=== PATIENT | male | born 1965 | race Caucasian/White ===

== ENCOUNTER 2018-06-16 07:59 | Emergency (ER) | payer SELFPAY ==
[~2018-06-16] VITALS: Ht 162.6 cm; Wt 63.5 kg
[~2018-06-16 07:59] MED LIST: ONDAN4ODT PO
[2018-06-16] MEDS ORDERED: TETANUS,DIPTH,PERTUSS P/F (BOOSTRIX) 0.5 ML VIAL IM ONE (08:15)
[2018-06-16] MEDS ORDERED: KETOROLAC 30 MG/ML VIAL IM ONE (08:15)
[2018-06-16] MEDS ORDERED: LIDOCAINE/EPI 2% 1:100,00 (XYLOCAINE) 20 ML VIAL INJ ONE (08:15)
--- NOTE | 2018-06-16 08:18 | ED Fall/Injury ---
General Chief Complaint: Laceration Stated Complaint: FELL AT DOWNSTAIR, CUT ARM Source: patient Exam Limitations: no limitations History of Present Illness Date Seen by Provider: Jun 16, 2018 Time Seen by Provider: 08:05 Initial Comments Patient presents to the ER by private conveyance with significant other and a chief complaint that this morning about 10-20 minutes prior to arrival he was getting up to go the bathroom and he stumbled and fell and cut open his left forearm. He wrapped in a towel. He does not member what he hit it against. He does not recall hitting his head and did not pass out. He is not having any nausea or pain elsewhere. He says he can move his hand and feel all of his fingers. He says he has a history of hepatitis C and quit drinking several years ago but still smokes. He denies any recent drug use. 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 Patient states she fell down 10 or 15 stairs he doesn't remember. He was indoors at his home. Allergies and Home Medications Allergies Coded Allergies: morphine (Verified Allergy, Unknown, 06/16/18) Home Medications No Active Prescriptions or Reported Meds Patient Home Medication List Home Medication List Reviewed: Yes Review of Systems Constitutional: No chills, No diaphoresis Eyes: Denies Blindness, Denies Blurred Vision Ears, Nose, Mouth, Throat: denies ear pain, denies ear discharge Respiratory: No cough, No short of breath Cardiovascular: No chest pain, No edema Gastrointestinal: No abdominal pain, No nausea, No vomiting Genitourinary: No discharge, No dysuria Past Sjsvjql-Ausral-Nfbwus Hx Patient Social History Alcohol Use: Denies Use Recreational Drug Use: No Recent Foreign Travel: No Contact w/Someone Who Travel: No Seasonal Allergies Seasonal Allergies: No Past Medical History Reproductive Disorders: No Liver Disease/Jaundice, Hepatitis Adverse Reaction/Blood Tranf: No Physical Exam Vital Signs Vital Signs - First Documented 06/16/18 08:11 Temp 98.0 Pulse 84 Resp 16 B/P (MAP) 128/98 (108) Pulse Ox 97 O2 Delivery Room Air Capillary Refill : Height, Weight, BMI Height: 5'9" Weight: 150lbs. oz. 68.436485mc; BMI Method:Estimated General Appearance: thin, other (disheveled, rocking) HEENT: PERRL/EOMI, pharynx normal, other (atraumatic with negative Gilmore sign or raccoon eyes) Cardiovascular: normal peripheral pulses, regular rate, rhythm Respiratory: no respiratory distress, no accessory muscle use Peripheral Pulses: 2+ Radial Pulses (R), 2+ Radial Pulses (L) Extremities: normal range of motion (wrist, hand and fingers on the left forearm) Neurologic/Psychiatric: alert, oriented x 3 Skin: other (6 cm linear laceration on the dorsum of the left forearm) Dianna Coma Score Best Eye Response: (4) Open Spontaneously Best Verbal Response: (5) Oriented Best Motor Response: (6) Obeys Commands Procedures/Interventions Wound Location: Upper Extremities Other Wound Location Left posterior forearm Wound Length (cm): 6 Wound's Depth, Shape: linear, sub Q Wound Explored: clean Irrigated w/ Saline (ccs): 200 Betadine Prep?: Yes (and chlorhexidine soap water) Anesthesia: Lidocaine w/ Epi (2%) Volume Anesthetic (ccs): 11 Wound Debrided: minimal Suture: Ethlion Suture Size: 2-0 Number of Sutures: 7 Layer Closure?: 1 Progress Patient's wound was cleaned thoroughly with chlorhexidine soap water then drenched in Betadine and draped again with chlorhexidine soap water gauze and allowed to soak. The wound was then infiltrated around the edges with 2% lidocaine with epinephrine 9 cc. When the patient was ascertained to be numb we placed simple interrupted sutures with Ethilon 2-0 7 which well approximated the skin edges and stopped any bleeding. The patient tolerated procedure well. Progress/Results/Core Measures Results/Orders Lab Results Laboratory Tests Test 06/16/18 08:38 Range/Units White Blood Count 10.4 4.3-11.0 10^3/uL Red Blood Count 4.45 4.35-5.85 10^6/uL Hemoglobin 14.0 13.3-17.7 G/DL Hematocrit 39 L 40-54 % Mean Corpuscular Volume 88 80-99 FL Mean Corpuscular Hemoglobin 32 25-34 PG Mean Corpuscular Hemoglobin Concent 36 32-36 G/DL Red Cell Distribution Width 16.4 H 10.0-14.5 % Platelet Count 167 130-400 10^3/uL Mean Platelet Volume 11.8 H 7.4-10.4 FL Sodium Level 136 135-145 MMOL/L Potassium Level 3.2 L 3.6-5.0 MMOL/L Chloride Level 105 98-107 MMOL/L Carbon Dioxide Level 22 21-32 MMOL/L Anion Gap 9 5-14 MMOL/L Blood Urea Nitrogen 7 7-18 MG/DL Creatinine 0.67 0.60-1.30 MG/DL Estimat Glomerular Filtration Rate > 60 BUN/Creatinine Ratio 10 Glucose Level 101 70-105 MG/DL Calcium Level 8.8 8.5-10.1 MG/DL Total Bilirubin 1.5 H 0.1-1.0 MG/DL Direct Bilirubin 0.6 H 0.0-0.3 MG/DL Indirect Bilirubin 0.9 MG/DL Aspartate Amino Transf (AST/SGOT) 66 H 5-34 U/L Alanine Aminotransferase (ALT/SGPT) 41 0-55 U/L Alkaline Phosphatase 138 H 40-136 U/L Total Protein 7.4 6.4-8.2 GM/DL Albumin 3.4 3.2-4.5 GM/DL Serum Alcohol < 10 <10 MG/DL My Orders Orders - ANU DIETZ Lidocaine/Epi 2% 1:100,000 (Xylocaine/Ep (06/16/18 08:15) Dipht,Pertuss(Acell),Tet Adult (Boostrix (06/16/18 08:15) Ketorolac Injection (Toradol Injection) (06/16/18 08:15) Cbc No Diff (06/16/18 08:27) Basic Metabolic Panel (06/16/18 08:27) Liver Panel (06/16/18 08:27) Alcohol (06/16/18 08:27) Ua Culture If Indicated (06/16/18 08:27) Chest 1 View, Ap/Pa Only (06/16/18 08:27) Pelvis (06/16/18 08:27) Ct Head/Cervical Spine Wo (06/16/18 08:29) Medications Given in ED Current Medications Medications Dose Ordered Sig/Brooke Route Start Time Stop Time Status Last Admin Dose Admin Diphtheria/ Tetanus/Acell Pertussis 0.5 ml ONCE ONCE IM 06/16/18 08:15 06/16/18 08:16 DC 06/16/18 08:22 0.5 ML Ketorolac Tromethamine 30 mg ONCE ONCE IM 06/16/18 08:15 06/16/18 08:16 DC 06/16/18 08:23 30 MG Lidocaine/ Epinephrine 20 ml ONCE ONCE INJ 06/16/18 08:15 06/16/18 08:16 DC 06/16/18 08:43 20 ML Vital Signs/I&O 06/16/18 08:11 Temp 98.0 Pulse 84 Resp 16 B/P (MAP) 128/98 (108) Pulse Ox 97 O2 Delivery Room Air Progress Progress Note : Time: 08:16 Progress Note Plan to give him a tetanus shot some Toradol for pain and lidocaine and then get his wound cleaned thoroughly and sewn up. He seems to have no tendon involvement. Diagnostic Imaging Diagonstic Imaging: Xray Plain Films/CT/US/NM/MRI: chest [facility] [place], [place] NAME: BRETT PATEL [facility] REC#: [id number] PT STATUS: REG ER : 1965 PHYSICIAN: ANU DIETZ MD ADMIT DATE: 06/16/18/ER Draft Date of Exam:06/16/18 CHEST 1 VIEW, AP/PA ONLY INDICATION: Fall. Chest pain. FINDINGS: Portable chest. The lungs are well-aerated. There is no pneumothorax or pleural effusion. No infiltrate. Heart is not enlarged. No rib fractures or clavicular fractures demonstrated. IMPRESSION: Negative portable chest. Dictated on workstation # [id number] Dict: 06/16/18 0843 Trans: 06/16/18 0847 [facility] [id number] Interpreted by: DONTAE SUH MD Electronically signed by: Reviewed: Reviewed by Me Diagonstic Imaging: Xray Plain Films/CT/US/NM/MRI: pelvis Comments [facility] [place], [place] NAME: BRETT PATEL [facility] REC#: [id number] PT STATUS: REG ER : 1965 PHYSICIAN: ANU DIETZ MD ADMIT DATE: 06/16/18/ER Draft Date of Exam:06/16/18 PELVIS INDICATION: Fall down stairs. FINDINGS: Portable AP pelvis. Bony ring appears intact. SI joints and pubic symphysis are in good alignment. No fracture is demonstrated. Femoral heads are in normal articulation bilaterally. IMPRESSION: Normal AP pelvis. Dictated on workstation # [id number] Dict: 06/16/18 0842 Trans: 06/16/18 0846 [facility] [id number] Interpreted by: DONTAE SUH MD Electronically signed by: Reviewed: Reviewed by Me Diagonstic Imaging: CT (without contrast) Plain Films/CT/US/NM/MRI: c-spine, head Comments [facility] [place], [place] NAME: BRETT PATEL [facility] REC#: [id number] PT STATUS: REG ER : 1965 PHYSICIAN: ANU DIETZ MD ADMIT DATE: 06/16/18/ER Draft Date of Exam:06/16/18 CT HEAD/CERVICAL SPINE WO PROCEDURE: CT head and CT cervical spine without contrast. TECHNIQUE: Multiple contiguous axial images were obtained through the brain and cervical spine without the use of intravenous contrast. Sagittal and coronal reformations through the cervical spine were then performed. INDICATION: Head and neck pain after a fall. FINDINGS: The ventricles and sulci are within normal limits. There is no hydrocephalus. There is no midline shift. There is no intracranial mass, hemorrhage or extra-axial fluid collection. The calvarium is intact. The sinuses and mastoid air cells are clear. The alignment of the cervical spine is normal. The vertebral body heights are well-maintained. There is no fracture or traumatic subluxation. The odontoid is intact and the lateral masses are well-aligned. There is degenerative disc disease at C5-6 and C6-7. The prevertebral soft tissues are within normal limits. There is some scarring or atelectasis in the right upper lobe. IMPRESSION: No acute intracranial abnormality. Moderate cervical spondylosis with degenerative disc disease at C5-6 and C6-7. There is however no acute fracture or traumatic subluxation. Scarring in the right lung apex. Dictated on workstation # [id number] Dict: 06/16/18926 Trans: 06/16/18932 [facility] [id number] Interpreted by: JOHNSON AMEZQUITA MD Electronically signed by: Reviewed: Reviewed by Me Consults : Consulting Physician: HANNAH MOLINA DO Consults Notes Discussed case lab imaging with Dr. Molina, trauma surgeon and he agrees with lying the patient to go home. Departure Impression Primary Impression: Fall Qualified Codes: W19.XXXA - Unspecified fall, initial encounter Additional Impressions: Laceration of forearm, left Qualified Codes: S51.812A - Laceration without foreign body of left forearm, initial encounter History of hepatitis C Disposition: HOME, SELF-CARE Condition: Improved Departure-Patient Inst. Decision time for Depature: 10:06 Referrals: HANNAH MOLINA DO NO,LOCAL PHYSICIAN (PCP) Primary Care Physician Patient Instructions: Laceration Repair With Stitches (DC) Add. Discharge Instructions: Keep the wound clean with regular soap and water. It's okay to shower or bathe. Return to the ER in 10-14 days to have the stitches removed. If You begin to have fevers chills nausea vomiting or discharge from the wound then you should return to the doctor sooner. If you have discharged from the wound or other worrisome symptoms you can see the the surgeon in his clinic by calling the phone number for Dr. Molina's clinic attached to your discharge instructions. All discharge instructions reviewed with patient and/or family. Voiced understanding. Scripts No Active Prescriptions or Reported Meds Copy Copies To 1: HANNAH MOLINA TITUS J Jun 16, 2018 08:18
--- NOTE | 2018-06-16 08:47 | Diagnostic Imaging Report ---
INDICATION: Fall. Chest pain. FINDINGS: Portable chest. The lungs are well-aerated. There is no pneumothorax or pleural effusion. No infiltrate. Heart is not enlarged. No rib fractures or clavicular fractures demonstrated. IMPRESSION: Negative portable chest. Dictated by: Dictated on workstation # [id number]
--- NOTE | 2018-06-16 08:47 | Diagnostic Imaging Report ---
INDICATION: Fall down stairs. FINDINGS: Portable AP pelvis. Bony ring appears intact. SI joints and pubic symphysis are in good alignment. No fracture is demonstrated. Femoral heads are in normal articulation bilaterally. IMPRESSION: Normal AP pelvis. Dictated by: Dictated on workstation # [id number]
[2018-06-16 08:49] LABS: MEAN PLATELET VOLUME 11.8 FL (7.4-10.4); RED BLOOD COUNT 4.45 10^6/uL (4.35-5.85); RED CELL DISTRIBUTION WIDTH 16.4 % (10.0-14.5); WHITE BLOOD COUNT 10.4 10^3/uL (4.3-11.0)
[2018-06-16 09:08] LABS: ALANINE AMINOTRANSFERASE 41 U/L (0-55); ALBUMIN 3.4 GM/DL (3.2-4.5); ALKALINE PHOSPHATASE 138 U/L (40-136); BILIRUBIN,DIRECT 0.6 MG/DL (0.0-0.3); BILIRUBIN,INDIRECT 0.9 MG/DL; BILIRUBIN,TOTAL 1.5 MG/DL (0.1-1.0); BUN/CREATININE RATIO 10; CALCIUM 8.8 MG/DL (8.5-10.1); CARBON DIOXIDE 22 MMOL/L (21-32); CHLORIDE 105 MMOL/L (98-107); CREATININE SERUM 0.67 MG/DL (0.60-1.30); GFR ESTIMATED > 60; GLUCOSE 101 MG/DL (70-105); POTASSIUM 3.2 MMOL/L (3.6-5.0); SODIUM 136 MMOL/L (135-145); TOTAL PROTEIN 7.4 GM/DL (6.4-8.2)
--- NOTE | 2018-06-16 09:34 | Diagnostic Imaging Report ---
PROCEDURE: CT head and CT cervical spine without contrast. TECHNIQUE: Multiple contiguous axial images were obtained through the brain and cervical spine without the use of intravenous contrast. Sagittal and coronal reformations through the cervical spine were then performed. INDICATION: Head and neck pain after a fall. FINDINGS: The ventricles and sulci are within normal limits. There is no hydrocephalus. There is no midline shift. There is no intracranial mass, hemorrhage or extra-axial fluid collection. The calvarium is intact. The sinuses and mastoid air cells are clear. The alignment of the cervical spine is normal. The vertebral body heights are well-maintained. There is no fracture or traumatic subluxation. The odontoid is intact and the lateral masses are well-aligned. There is degenerative disc disease at C5-6 and C6-7. The prevertebral soft tissues are within normal limits. There is some scarring or atelectasis in the right upper lobe. IMPRESSION: No acute intracranial abnormality. Moderate cervical spondylosis with degenerative disc disease at C5-6 and C6-7. There is however no acute fracture or traumatic subluxation. Scarring in the right lung apex. Dictated by: Dictated on workstation # [id number]
[2018-06-16 10:23] VITALS: BP 117/86
== END 2018-06-16 10:23 | disposition home or self-care (01) ==
LOC: EDUNIT# 07:59 → ER 08:01
DX: S51.812A Laceration without foreign body of left forearm, initial encounter (principal); B19.20 Unspecified viral hepatitis C without hepatic coma; R40.2142 Coma scale, eyes open, spontaneous, at arrival to emergency department; R40.2252 Coma scale, best verbal response, oriented, at arrival to emergency department; R40.2362 Coma scale, best motor response, obeys commands, at arrival to emergency department; Z23 Encounter for immunization; Z90.81 Acquired absence of spleen; W01.0XXA Fall on same level from slipping, tripping and stumbling without subsequent striking against object, initial encounter
CPT/HCPCS: 12032; 36415; 70450; 71045; 72125; 72170; 80048; 80076; 80320; 85027; 90471; 90715; 96372

== ENCOUNTER 2019-11-10 09:08 | Inpatient (IN) | payer SELFPAY ==
[~2019-11-10] VITALS: Ht 172.7 cm; Wt 68.8 kg
[2019-11-10] MEDS ORDERED: LACTATED RINGERS 1,000 ML IV ONE (09:31)
[2019-11-10] MEDS ORDERED: fentaNYL INJECTION 100 MCG/2 ML AMP IVP STA ×2 (09:31→10:52)
[2019-11-10] MEDS ORDERED: KETAMINE/NaCl 50 MG/5 ML SYRINGE (ED ONLY) IV ONE (09:45)
[2019-11-10] MEDS ORDERED: KETAMINE 50 MG/ML 10 ML VIAL IV ONE (09:45)
[2019-11-10 09:46] LABS: BASOPHILS % (AUTO) 0 % (0-10); EOSINOPHILS % (AUTO) 0 % (0-10); HEMATOCRIT 43 % (40-54); HEMOGLOBIN 15.3 G/DL (13.3-17.7); LYMPHOCYTES # (AUTO) 1.1 X 10^3 (1.0-4.0); LYMPHOCYTES % (AUTO) 5 % (12-44); MEAN CORPUSCULAR HEMOGLOBIN 31 PG (25-34); MEAN CORPUSCULAR HGB CONC 35 G/DL (32-36); MEAN CORPUSCULAR VOLUME 88 FL (80-99); MEAN PLATELET VOLUME 11.5 FL (7.4-10.4); MONOCYTES # (AUTO) 1.8 X 10^3 (0.0-1.0); MONOCYTES % (AUTO) 8 % (0-12); NEUTROPHILS # (AUTO) 18.3 X 10^3 (1.8-7.8); NEUTROPHILS % (AUTO) 86 % (42-75); PLATELET COUNT 192 10^3/uL (130-400); RED CELL DISTRIBUTION WIDTH 14.4 % (10.0-14.5); WHITE BLOOD COUNT 21.2 10^3/uL (4.3-11.0)
[2019-11-10 09:57] LABS: ALANINE AMINOTRANSFERASE 46 U/L (0-55); ALBUMIN 3.3 GM/DL (3.2-4.5); ALKALINE PHOSPHATASE 163 U/L (40-136); BUN/CREATININE RATIO 14; CALCIUM 8.7 MG/DL (8.5-10.1); CARBON DIOXIDE 21 MMOL/L (21-32); CHLORIDE 99 MMOL/L (98-107); CREATININE SERUM 0.77 MG/DL (0.60-1.30); GFR ESTIMATED > 60; GLUCOSE 115 MG/DL (70-105); SODIUM 132 MMOL/L (135-145); TOTAL PROTEIN 8.1 GM/DL (6.4-8.2)
[2019-11-10 10:00] LABS: POTASSIUM 3.7 MMOL/L (3.6-5.0)
[2019-11-10] MEDS ORDERED: ONDANSETRON 4 MG/2 ML (SDV) Z0FRAN IVP ONE (10:15)
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
[2019-11-10 10:37] LABS: BAND NEUTROPHILS 5 %; BASOPHILS % (MANUAL) 0 %; EOSINOPHILS % (MANUAL) 0 %; LYMPHOCYTES % (MANUAL) 6 %; MONOCYTES % (MANUAL) 4 %; NEUTROPHILS % (MANUAL) 85 %
[2019-11-10 10:38] LABS: RBC MORPH NORMAL; TOXIC GRANULATION/VACUOLAZATIO 1+
--- NOTE | 2019-11-10 10:42 | Diagnostic Imaging Report ---
PROCEDURE: CT urinary tract, rule out kidney stone. TECHNIQUE: Multiple contiguous axial images were obtained through the abdomen and pelvis without the use of intravenous contrast. Auto Exposure Controls were utilized during the CT exam to meet ALARA standards for radiation dose reduction. INDICATION: Abdominal pain. COMPARISON: 05/18/2015. FINDINGS: The visualized lung bases are clear. A significantly nodular contour of the liver is present. Evaluation for focal hepatic mass lesions is severely limited secondary to the lack of intravenous contrast. The spleen is not visualized. The adrenal glands are unremarkable. The gallbladder is borderline dilated. The bilateral kidneys are unremarkable. No hydroureter. Mild vascular calcifications within the abdominal aorta and its branch vessels without aneurysmal dilatation of the abdominal aorta. The appendix is unremarkable. Mild mural thickening of the urinary bladder. Diffuse mural thickening of the colon. Loops of small bowel are at the upper limits of normal in size without discrete transition point. No pneumatosis. A small amount of free fluid with diffuse fat stranding throughout the abdomen and pelvis. Atrophy of the left rectus abdominal musculature. Prominence of the vasculature within the supraumbilical region is noted, appearing more prominent than on the prior examination. No free air. Scattered osseous degenerative changes without acute osseous abnormality. 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 IMPRESSION: Cirrhotic morphology of the liver. This is associated with a small amount of ascites. Given the increasing prominence of the supraumbilical vasculature, this suggests recanalization of the umbilical vein. Diffuse mural thickening of the colon is felt to relate to colitis versus edema and venous congestion. Diffuse fat stranding throughout the peritoneum, possibly related to venous congestion and edema, although peritonitis is not excluded. The gallbladder is at the upper limits of normal in size. The small bowel loops are at the upper limits of normal in size without discrete transition point, likely related to focal ileus. Mild mural thickening of the urinary bladder is favored to relate to poor distention with cystitis felt less likely. Additional findings as above. Dictated by: Dictated on workstation # [id number]
--- NOTE | 2019-11-10 10:55 | NUR ---
AMB TO BATHROOM HAVE BM.
--- NOTE | 2019-11-10 11:07 | NUR ---
REMAINS IN BATHROOM
--- NOTE | 2019-11-10 11:21 | NUR ---
LAB HERE TO DRAW BOTH SETS OF BLOOD CULTURES AND LATIC ACID UNABLE TO DRAW BLOOD FROM
[2019-11-10 11:36] LABS: BILIRUBIN,URINE NEGATIVE (NEGATIVE); CLARITY,URINE CLEAR; COLOR,URINE YELLOW; GLUCOSE, URINE (UA) NEGATIVE (NEGATIVE); KETONES,URINE NEGATIVE (NEGATIVE); LEUKOCYTE ESTERASE ,URINE NEGATIVE (NEGATIVE); NITRITE,URINE NEGATIVE (NEGATIVE); PH,URINE 6.5 (5-9); PROTEIN,URINE TRACE (NEGATIVE)
[2019-11-10 11:41] LABS: BACTERIA,URINE TRACE /HPF
[2019-11-10 11:43] LABS: AMPHETAMINE SCREEN, URINE POSITIVE (NEGATIVE); BARBITURATE SCREEN URINE NEGATIVE (NEGATIVE); BENZODIAZEPINES SCREEN URINE NEGATIVE (NEGATIVE); CANNABINOID SCREEN, URINE POSITIVE (NEGATIVE); COCAINE SCREEN URINE NEGATIVE (NEGATIVE); METHADONE STAT NEGATIVE (NEGATIVE); METHAMPHETAMINE SCREEN URINE S POSITIVE (NEGATIVE); OPIATE SCREEN URINE NEGATIVE (NEGATIVE); OXYCODONE STAT NEGATIVE (NEGATIVE); PROPOXYPHENE STAT NEGATIVE (NEGATIVE); TRICYCLIC ANTIDEPRESSANTS SCRE NEGATIVE (NEGATIVE)
[2019-11-10] MEDS ORDERED: IOHEXOL 350 MG/ML 100 ML (OMNIPAQUE 350) VIAL IV ONE (11:45)
[2019-11-10] MEDS ORDERED: HYDROmorphone 2 MG/ML VIAL (DILAUDID) IV ONE ×2 (11:45→14:30)
[2019-11-10] MEDS ORDERED: HOLD METFORMIN - RECEIVED CONTRAST 20 ML VIAL IV SCH (11:45)
[2019-11-10] MEDS ORDERED: NS 100 ML (IVPB) BAG IV ONE (11:45)
[2019-11-10] MEDS ORDERED: PIPERACILLIN SODIUM/TAZOBACTAM 4.5 GM in NS (IVPB) 100 ML IV ONE (12:30)
--- NOTE | 2019-11-10 12:30 | NUR ---
BACK TO CT.
--- NOTE | 2019-11-10 12:40 | Diagnostic Imaging Report ---
PROCEDURE: US Scrotum. TECHNIQUE: Multiple real-time grayscale images were obtained over the scrotum in various projections bilaterally. INDICATION: Left testicular pain. FINDINGS: Right testicle measures 4.0 x 2.3 x 2.8 cm, and the left testicle measures 4.1 x 1.9 x 2.8 cm. Both testes demonstrate homogeneous echotexture. No discrete testicular mass is seen. There is blood flow to both testes. No hydrocele or varicocele is seen. Right epididymis is unremarkable. There is some enlargement and some increased vascularity involving the left epididymis suggestive of epididymitis. No other abnormalities are seen. IMPRESSION: 1. No evidence of testicular mass or vascular compromise. 2. Findings suggestive of left epididymitis. Dictated by: Dictated on workstation # [id number]
--- NOTE | 2019-11-10 12:59 | Diagnostic Imaging Report ---
EXAMINATION: CT Abdomen and Pelvis with intravenous contrast. TECHNIQUE: Multiple contiguous axial images were obtained through the abdomen and pelvis after the uneventful administration of intravenous contrast. All CT scans use one or more of the following dose optimizing techniques: automated exposure control, MA and/or KvP adjustment based on a patient size and exam type, or iterative reconstruction. HISTORY: Left-sided abdominal pain COMPARISON: Earlier the same day FINDINGS: Limited views of the lower thorax are unremarkable. The liver is cirrhotic and steatotic. The umbilical vein is recanalized and there are periumbilical varices. There is no biliary ductal dilation. Gallbladder is normal. Pancreas is normal. Spleen is not seen. Adrenal glands are normal. The kidneys are normal. There is no hydronephrosis. Urinary bladder is normal. There is mild thickening and mucosal hyperenhancement the sigmoid colon suggestive of colitis. No free fluid or air. No abdominal or pelvic lymphadenopathy. Aorta is normal in caliber without aneurysm. There is a fat-containing ventral hernia. There is mild mesenteric edema. There are no suspicious osseus lesions. IMPRESSION: 1. Cirrhosis and portal hypertension with a recanalized umbilical vein and umbilical varices. 2. Mild thickening and mucosal hyperenhancement of the sigmoid colon suggestive of colitis. Dictated by: Dictated on workstation # [id number]
--- NOTE | 2019-11-10 13:31 | NUR ---
DR MOLINA HER TO SEE PATIENT.
--- NOTE | 2019-11-10 14:09 | NUR ---
JON PATEL PHONE NUMBER [phone]
--- NOTE | 2019-11-10 14:50 | NUR ---
GERSON PATELMY Magan admitted to room 419-1, with an admitting diagnosis of ABD PAIN, on 11/10/19 from ED via WC, accompanied by STAFF. BRETT PATEL introduced to surroundings, call light, bed controls, phone, TV, temperature control, lights, meal times, smoking policy, visitor policy, side rail policy, bathrooms and showers. Patient Rights given to patient in the handbook. BRETT PATEL verbalizes understanding that [facility] is not responsible for the loss or damage to any personal effects or valuables that are kept in the patients posession during their hospitalization. The following Patient Care Plans were discussed with the PT: Discharge Planning, PAIN, AND DIET. BRETT PATEL verbalizes understanding of Interdisciplinary Patient Education. Patient and/or family were informed about the Rapid Response Team and its purpose.
[2019-11-10 15:07] VITALS: BP 173/89
--- NOTE | 2019-11-10 15:07 | NUR ---
SPOKE WITH THE PT AND HE INDICATED THAT HE DID NOT TAKE ANY PRESCRIPTION OR OTC MEDS.
[2019-11-10] MEDS ORDERED: CATHETER FLUSH 10 ML SYR IV PRN (15:15)
[2019-11-10] MEDS ORDERED: HYDROmorphone 2 MG/ML VIAL (DILAUDID) IV PRN (15:15)
[2019-11-10] MEDS ORDERED: ONDANSETRON 4 MG/2 ML (SDV) Z0FRAN IV PRN (15:15)
--- NOTE | 2019-11-10 15:46 | History & Physical-Hospitalist ---
History of Present Illness HPI/Chief Complaint Patient is a 53-year-old male with past medical history of alcohol abuse, cirrhosis, esophageal varices who presented to the emergency department with chief complaint of abdominal pain. He reports this started 3 days ago. It acutely worsened last night became intolerable prompting him to seek evaluation in the emergency room. He denies any history of similar pain. His last bowel movement was today in the emergency room and he reports it was normal. He denies any nausea or vomiting. Source: patient Exam Limitations: clinical condition Date Seen 11/10/19 Time Seen by a Provider: 15:41 Attending Physician Luz Elena Lacey MD PCP No,Local Physician Referring Physician Date of Admission Nov 10, 2019 at 13:58 Home Medications & Allergies Home Medications Reviewed patient Home Medication Reconciliation performed by pharmacy medication reconciliations instrument room technician and/or nursing. Patients Allergies have been reviewed. Allergies Allergies Coded Allergies morphine (Verified Allergy, Unknown, 06/16/18) Past Zoktgsr-Ugppzs-Xffqcz Hx Past Med/Social Hx: Reviewed Nursing Past Med/Soc Hx, Reviewed and Corrections made Patient Social History Alcohol Use: Past History (quit 2014) Recreational Drug Use: Yes Drug of Choice: meth and thc Smoking Status: Current Everyday Smoker Cigaretts per day: 5 Type Used: Cigarettes Recent Foreign Travel: No Contact w/other who traveled: No Recent Infectious Disease Expo: No Seasonal Allergies Seasonal Allergies: No Past Medical History splenectomy Reproductive: No Gastrointestinal: Liver Disease/Jaundice, Esophageal Varices, Hepatitis (c) History of Blood Disorders: No Adverse Reaction to Blood [place]: No Family History Reviewed Nursing Family Hx No Pertinent Family Hx Review of Systems Constitutional: No chills, No fever EENTM: no symptoms reported Respiratory: No cough, No dyspnea on exertion, No short of breath Cardiovascular: No chest pain, No Hx of Intervention, No palpitations Gastrointestinal: abdominal pain (left to groin); No constipation, No diarrhea, No loss of appetite, No nausea, No vomiting Genitourinary: no symptoms reported Musculoskeletal: no symptoms reported Skin: no symptoms reported Psychiatric/Neurological: No Symptoms Reported Physical Exam Physical Exam Vital Signs Vital Signs - First Documented 11/10/19 09:13 Temp 36.8 Pulse 117 Resp 18 B/P (MAP) 126/89 (101) Pulse Ox 98 O2 Delivery Room Air Capillary Refill : Less Than 3 Seconds Height, Weight, BMI Height: 5'4.00" Weight: 140lbs. 0oz. [id number]; 23.06 BMI Method:Estimated General Appearance: No Apparent Distress, Chronically ill HEENT: Moist Mucous Membranes, Other (edentulous ) Neck: Normal Inspection; No Thyromegaly Respiratory: Lungs Clear, No Accessory Muscle Use, No Respiratory Distress Cardiovascular: Regular Rate, Rhythm, No Murmur Gastrointestinal: Normal Bowel Sounds, Soft, Guarding, Tenderness Genital/Rectal: Other Extremity: No Calf Tenderness, No Pedal Edema Neurologic/Psychiatric: Alert, Oriented x3, Normal Mood/Affect Skin: Normal Color, Warm/Dry Results Results/Procedures Labs Laboratory Tests 11/10/19 09:23 Patient resulted labs reviewed. Imaging: Reviewed Imaging Report Imaging Date of Exam:11/10/19 CT ABD/PELVIS WO(KIDNEY STONE) PROCEDURE: CT urinary tract, rule out kidney stone. TECHNIQUE: Multiple contiguous axial images were obtained through the abdomen and pelvis without the use of intravenous contrast. Auto Exposure Controls were utilized during the CT exam to meet ALARA standards for radiation dose reduction. INDICATION: Abdominal pain. COMPARISON: 05/18/2015. FINDINGS: The visualized lung bases are clear. A significantly nodular contour of the liver is present. Evaluation for focal hepatic mass lesions is severely limited secondary to the lack of intravenous contrast. The spleen is not visualized. The adrenal glands are unremarkable. The gallbladder is borderline dilated. The bilateral kidneys are unremarkable. No hydroureter. Mild vascular calcifications within the abdominal aorta and its branch vessels without aneurysmal dilatation of the abdominal aorta. The appendix is unremarkable. Mild mural thickening of the urinary bladder. Diffuse mural thickening of the colon. Loops of small bowel are at the upper limits of normal in size without discrete transition point. No pneumatosis. A small amount of free fluid with diffuse fat stranding throughout the abdomen and pelvis. Atrophy of the left rectus abdominal musculature. Prominence of the vasculature within the supraumbilical region is noted, appearing more prominent than on the prior examination. No free air. Scattered osseous degenerative changes without acute osseous abnormality. 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 IMPRESSION: Cirrhotic morphology of the liver. This is associated with a small amount of ascites. Given the increasing prominence of the supraumbilical vasculature, this suggests recanalization of the umbilical vein. Diffuse mural thickening of the colon is felt to relate to colitis versus edema and venous congestion. Diffuse fat stranding throughout the peritoneum, possibly related to venous congestion and edema, although peritonitis is not excluded. The gallbladder is at the upper limits of normal in size. The small bowel loops are at the upper limits of normal in size without discrete transition point, likely related to focal ileus. Mild mural thickening of the urinary bladder is favored to relate to poor distention with cystitis felt less likely. Additional findings as above. Assessment/Plan Admission Diagnosis Severe Sepsis Colitis Intractable abd pain Continue on abx Surgery consulted Dilaudid for pain Epididymitis Continue Zosyn GC/Chlam testing alcoholic liver disease esophageal varices s/p banding hepatitis C no acute management need tobacco abuse meth use reportedly uses clean needles Admission Status: Inpatient Order (span 2 midnights) Reason for Inpatient Admission: IV abx, iv pain control, anticipate more than two midnights needs for stabilize for DC LUZ ELENA LACEY MD Nov 10, 2019 15:46 POS
[2019-11-10] MEDS ORDERED: ONDANSETRON 4 MG/2 ML (SDV) Z0FRAN IVP PRN (16:00)
[2019-11-10] MEDS: LACTATED RINGERS 1,000 ML IV SCH (16:12)
[2019-11-10 16:26] VITALS: BP 121/91
[2019-11-10] MEDS: PIPERACILLIN/TAZO 4.5 GM/NS 100 ML IV SCH ×2 (18:44)
--- NOTE | 2019-11-10 19:14 | Consultation - Surgery ---
History of Present Illness History of Present Illness Patient Consulted On(fei/time) 11/10/19 19:13 Date Seen by Provider: Nov 10, 2019 Time Seen by Provider: 13:32 History of Present Illness Consult requested for abdominal pain from Dr. Gutierrez. Ade is a 53 year old male that began having left lower quadrant pain last evening and has continued today. Constant pain that is in left testicle as well. Severe pain. Nothing really making better or worse. Had u/s consistent with left epididymitis and ct scan consistent with cirrhotic changes and thickening of the sigmoid colon suggestive of colitis. Patient reports no bloody or dark stools. Has history of varices and banding. Still uses meth and marijuana. Allergies and Home Medications Allergies Coded Allergies: morphine (Verified Allergy, Unknown, 11/10/19) Home Medications No Active Prescriptions or Reported Meds Patient Home Medication List Home Medication List Reviewed: Yes Past Ydxuanj-Hgqgxc-Sagxkw Hx Patient Social History Alcohol Use: Past History Recreational Drug Use: Yes Drug of Choice: meth and thc Smoking Status: Current Everyday Smoker Cigarettes Per Day: 5 Type Used: Cigarettes Recent Foreign Travel: No Contact w/Someone Who Travel: No Recent Infectious Disease Expo: No Physical Abuse Screen: No Sexual Abuse: No Seasonal Allergies Seasonal Allergies: No Surgeries History of Surgeries: Yes Respiratory History of Respiratory Disorde: No (Tobaccoism) Cardiovascular History of Cardiac Disorders: No (Prior HTN meds) Reproductive System Hx Reproductive Disorders: No Genitourinary History of Genitourinary Disor: No Gastrointestinal History of Gastrointestinal Di: Yes (HEPATITIS C PER OLD RECORD) Gastrointestinal Disorders: Liver Disease/Jaundice, Esophageal Varices, Hepatitis Musculoskeletal History of Musculoskeletal Dis: No Endocrine History of Endocrine Disorders: No Cancer History of Cancer: No Psychosocial History of Psychiatric Problem: No Integumentary History of Skin or Integumenta: Yes (Unkempt with dirt and scratches scattered) Blood Transfusions History of Blood Disorders: No Adverse Reaction to a Blood Tr: No Reviewed Nursing Assessment Reviewed/Agree w Nursing PMH: Yes Family Medical History Significant Family History: No Pertinent Family Hx Review of Systems-General Constitutional: no symptoms reported EENTM: no symptoms reported Respiratory: no symptoms reported Cardiovascular: no symptoms reported Gastrointestinal: see HPI Genitourinary: see HPI Musculoskeletal: no symptoms reported Skin: no symptoms reported Psychiatric/Neurological: No Symptoms Reported Physical Exam-General Problems Physical Exam Vital Signs Vital Signs - First Documented 11/10/19 09:13 Temp 36.8 Pulse 117 Resp 18 B/P (MAP) 126/89 (101) Pulse Ox 98 O2 Delivery Room Air Capillary Refill : Less Than 3 SecondsLess Than 3 Seconds General Appearance: mild distress HEENT: PERRL/EOMI, normal ENT inspection Neck: supple Respiratory: chest non-tender, no respiratory distress, no accessory muscle use Cardiovascular: tachycardia Gastrointestinal: soft; No distended, No guarding, No rebound; tenderness (left lower quadrant) Rectal: deferred Genital/Rectal: tenderness (left testicle, prominent left epididymis tender) Back: no CVA tenderness Extremities: non-tender, normal inspection Neurologic/Psychiatric: building attendant II-XII nml as tested, no motor/sensory deficits, alert, oriented x 3 Skin: warm/dry Lymphatic: no adenopathy Data Review Labs Laboratory Tests 11/10/19 09:23: White Blood Count 21.2H, Red Blood Count 4.92, Hemoglobin 15.3, Hematocrit 43, Mean Corpuscular Volume 88, Mean Corpuscular Hemoglobin 31, Mean Corpuscular Hemoglobin Concent 35, Red Cell Distribution Width 14.4, Platelet Count 192, Mean Platelet Volume 11.5H, Neutrophils (%) (Auto) 86H, Lymphocytes (%) (Auto) 5L, Monocytes (%) (Auto) 8, Eosinophils (%) (Auto) 0, Basophils (%) (Auto) 0, Neutrophils # (Auto) 18.3H, Lymphocytes # (Auto) 1.1, Monocytes # (Auto) 1.8H, Eosinophils # (Auto) 0.0, Basophils # (Auto) 0.0, Neutrophils % (Manual) 85, Lymphocytes % (Manual) 6, Monocytes % (Manual) 4, Eosinophils % (Manual) 0, Basophils % (Manual) 0, Band Neutrophils 5, Toxic Granulation 1+, Blood Morphology Comment NORMAL, Sodium Level 132L, Potassium Level 3.7, Chloride Level 99, Carbon Dioxide Level 21, Anion Gap 12, Blood Urea Nitrogen 11, Creatinine 0.77, Estimat Glomerular Filtration Rate > 60, BUN/Creatinine Ratio 14, Glucose Level 115H, Calcium Level 8.7, Corrected Calcium 9.3, Total Bilirubin 1.0, Aspartate Amino Transf (AST/SGOT) 55H, Alanine Aminotransferase (ALT/SGPT) 46, Alkaline Phosphatase 163H, C-Reactive Protein High Sensitivity 2.13H, Total Protein 8.1, Albumin 3.3 11/10/19 11:15: Urine Color YELLOW, Urine Clarity CLEAR, Urine pH 6.5, Urine Specific [place] 1.020, Urine Protein TRACE, Urine Glucose (UA) NEGATIVE, Urine Ketones NEGATIVE, Urine Nitrite NEGATIVE, Urine Bilirubin NEGATIVE, Urine Urobilinogen 1.0, Urine Leukocyte Esterase NEGATIVE, Urine RBC (Auto) 1+H, Urine RBC 2-5H, Urine WBC NONE, Urine Squamous Epithelial Cells NONE, Urine Crystals NONE, Urine Bacteria TRACE, Urine Casts PRESENT, Urine Hyaline Casts 5-10H, Urine Mucus SMALLH, Urine Culture Indicated NO, Urine Opiates Screen NEGATIVE, Urine Oxycodone Screen NEGATIVE, Urine Methadone Screen NEGATIVE, Urine Propoxyphene Screen NEGATIVE, Urine Barbiturates Screen NEGATIVE, Ur Tricyclic Antidepressants Screen NEGATIVE, Urine Phencyclidine Screen NEGATIVE, Urine Amphetamines Screen POSITIVEH, Urine Methamphetamines Screen POSITIVEH, Urine Benzodiazepines Screen NEGATIVE, Urine Cocaine Screen NEGATIVE, Urine Cannabinoids Screen POSITIVEH 11/10/19 11:25: Lactic Acid Level 2.62*H 11/10/19 14:00: Lactic Acid Level 1.79 Assessment/Plan Assessment/Plan Assessment/Plan severe sepsis llq abd pain colitis-sigmoid epididymitis left hep c meth/marijuana use esophageal varices s/p banding cirrhosis patient with intractable llq/testicular pain- pain control both iv/oral options for best control iv fluid and started on Zosyn clear liquid diet discussed cessation of illicit drugs no surgical intervention at this time, will need continued IV abx and reassessment will follow. Clinical Quality Measures DVT/VTE Risk/Contraindication: Risk Factor Score Per Nursin RFS Level Per Nursing on Admit: 3=High HANNAH MOLINA DO Nov 10, 2019 19:14 POS
[2019-11-10 20:00] VITALS: BP 119/78
[2019-11-11] VITALS: BP 112/74
[2019-11-11] MEDS: LACTATED RINGERS 1,000 ML IV SCH ×2 (00:25→12:13)
[2019-11-11] MEDS: PIPERACILLIN/TAZO 4.5 GM/NS 100 ML IV SCH ×4 (03:22→12:13)
[2019-11-11 04:00] VITALS: BP 127/81
[2019-11-11 05:19] LABS: BASOPHILS # (AUTO) 0.1 10^3/uL (0.0-0.1); BASOPHILS % (AUTO) 0 % (0-10); EOSINOPHILS # (AUTO) 0.1 10^3/uL (0.0-0.3); EOSINOPHILS % (AUTO) 0 % (0-10); HEMATOCRIT 42 % (40-54); HEMOGLOBIN 15.4 G/DL (13.3-17.7); LYMPHOCYTES # (AUTO) 2.3 X 10^3 (1.0-4.0); LYMPHOCYTES % (AUTO) 10 % (12-44); MEAN CORPUSCULAR HEMOGLOBIN 32 PG (25-34); MEAN CORPUSCULAR HGB CONC 36 G/DL (32-36); MEAN CORPUSCULAR VOLUME 88 FL (80-99); MEAN PLATELET VOLUME 11.6 FL (7.4-10.4); MONOCYTES # (AUTO) 2.7 X 10^3 (0.0-1.0); MONOCYTES % (AUTO) 12 % (0-12); NEUTROPHILS % (AUTO) 78 % (42-75); PLATELET COUNT 167 10^3/uL (130-400); RED CELL DISTRIBUTION WIDTH 14.9 % (10.0-14.5); WHITE BLOOD COUNT 23.1 10^3/uL (4.3-11.0)
[2019-11-11 05:30] LABS: ALANINE AMINOTRANSFERASE 35 U/L (0-55); ALBUMIN 2.7 GM/DL (3.2-4.5); ALKALINE PHOSPHATASE 134 U/L (40-136); BUN/CREATININE RATIO 12; CARBON DIOXIDE 19 MMOL/L (21-32); CHLORIDE 102 MMOL/L (98-107); CREATININE SERUM 0.66 MG/DL (0.60-1.30); GFR ESTIMATED > 60; GLUCOSE 84 MG/DL (70-105); POTASSIUM 3.7 MMOL/L (3.6-5.0); SODIUM 134 MMOL/L (135-145); TOTAL PROTEIN 6.7 GM/DL (6.4-8.2)
[2019-11-11 08:00] VITALS: BP 126/74
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
--- NOTE | 2019-11-11 08:48 | Progress Note - Surgery ---
ELSA SIM MED STUDENT 11/11/19 0848: Subjective Date Seen by a Provider: Nov 11, 2019 Time Seen by a Provider: 07:30 Subjective/Events-last exam Since he was seen yesterday, Mr. Cárdenas reports significant improvement. He denies having any LLQ or testicular pain today. No other complaints. Review of Systems General: No Chills, No Fatigue, No Other (fevers) HEENT: No Sinus Congestion, No Sore Throat Pulmonary: No Dyspnea, No Cough Cardiovascular: No: Chest Pain, Palpitations, Edema, Lt Headedness Gastrointestinal: No: Nausea, Vomiting, Abdominal Pain, Diarrhea, Constipation, Melena, Hematochezia Genitourinary: No Dysuria, No Hematuria Neurological: No: Weakness, Numbness Focused Exam Lactate Level 11/10/19 11:25: Lactic Acid Level 2.62*H 11/10/19 14:00: Lactic Acid Level 1.79 Objective Exam Vital Signs Date Time Temp Pulse Resp B/P (MAP) Pulse Ox O2 Delivery O2 Flow Rate FiO2 11/11/19 08:00 36.4 85 16 126/74 (91) 94 Room Air 11/11/19 04:00 37.4 80 16 127/81 (96) 94 Room Air 11/11/19 00:00 37.4 83 18 112/74 (87) 96 Room Air 11/10/19 20:00 Room Air 11/10/19 20:00 37.3 71 20 119/78 (92) 93 Room Air 11/10/19 18:47 Room Air 11/10/19 16:26 37.7 100 18 121/91 (101) 96 Room Air 11/10/19 15:07 37.3 108 18 173/89 95 Room Air 11/10/19 14:34 100 18 149/96 100 11/10/19 09:13 36.8 117 18 126/89 (101) 98 Room Air I & O 11/11/19 07:00 Intake Total 2220 ml Balance 2220 ml Capillary Refill : Less Than 3 SecondsLess Than 3 Seconds General Appearance: No Apparent Distress, WD/WN HEENT: PERRL/EOMI; No Scleral Icterus (L), No Scleral Icterus (R) Neck: Normal Inspection, Non Tender, Supple, Other (increased fullness in supraclavicular space, felt like tense musculature, denies tenderness) Respiratory: Lungs Clear, Normal Breath Sounds, No Accessory Muscle Use, No Respiratory Distress Cardiovascular: Regular Rate, Rhythm, No Edema, No Murmur, Normal Peripheral Pulses Peripheral Pulses: 2+ Dorsalis Pedis (R), 2+ Left Dors-Pedis (L), 2+ Radial Pulses (R), 2+ Radial Pulses (L) Gastrointestinal: soft, no organomegaly; No distended, No guarding, No tenderness Extremity: Normal Capillary Refill, No Calf Tenderness, No Pedal Edema Neurologic/Psychiatric: Alert, Oriented x3, Normal Mood/Affect Skin: Normal Color, Warm/Dry Lymphatic: No Adenopathy Results Lab Laboratory Tests 11/10/19 09:23: White Blood Count 21.2H, Red Blood Count 4.92, Hemoglobin 15.3, Hematocrit 43, Mean Corpuscular Volume 88, Mean Corpuscular Hemoglobin 31, Mean Corpuscular Hemoglobin Concent 35, Red Cell Distribution Width 14.4, Platelet Count 192, Mean Platelet Volume 11.5H, Neutrophils (%) (Auto) 86H, Lymphocytes (%) (Auto) 5L, Monocytes (%) (Auto) 8, Eosinophils (%) (Auto) 0, Basophils (%) (Auto) 0, Neutrophils # (Auto) 18.3H, Lymphocytes # (Auto) 1.1, Monocytes # (Auto) 1.8H, Eosinophils # (Auto) 0.0, Basophils # (Auto) 0.0, Neutrophils % (Manual) 85, Lymphocytes % (Manual) 6, Monocytes % (Manual) 4, Eosinophils % (Manual) 0, Basophils % (Manual) 0, Band Neutrophils 5, Toxic Granulation 1+, Blood Morphology Comment NORMAL, Sodium Level 132L, Potassium Level 3.7, Chloride Level 99, Carbon Dioxide Level 21, Anion Gap 12, Blood Urea Nitrogen 11, Creatinine 0.77, Estimat Glomerular Filtration Rate > 60, BUN/Creatinine Ratio 14, Glucose Level 115H, Calcium Level 8.7, Corrected Calcium 9.3, Total Bilirubin 1.0, Aspartate Amino Transf (AST/SGOT) 55H, Alanine Aminotransferase (ALT/SGPT) 46, Alkaline Phosphatase 163H, C-Reactive Protein High Sensitivity 2.13H, Total Protein 8.1, Albumin 3.3 11/10/19 11:15: Urine Color YELLOW, Urine Clarity CLEAR, Urine pH 6.5, Urine Specific [place] 1.020, Urine Protein TRACE, Urine Glucose (UA) NEGATIVE, Urine Ketones NEGATIVE, Urine Nitrite NEGATIVE, Urine Bilirubin NEGATIVE, Urine Urobilinogen 1.0, Urine Leukocyte Esterase NEGATIVE, Urine RBC (Auto) 1+H, Urine RBC 2-5H, Urine WBC NONE, Urine Squamous Epithelial Cells NONE, Urine Crystals NONE, Urine Bacteria TRACE, Urine Casts PRESENT, Urine Hyaline Casts 5-10H, Urine Mucus SMALLH, Urine Culture Indicated NO, Urine Opiates Screen NEGATIVE, Urine Oxycodone Screen NEGATIVE, Urine Methadone Screen NEGATIVE, Urine Propoxyphene Screen NEGATIVE, Urine Barbiturates Screen NEGATIVE, Ur Tricyclic Antidepressants Screen NEGATIVE, Urine Phencyclidine Screen NEGATIVE, Urine Amphetamines Screen POSITIVEH, Urine Methamphetamines Screen POSITIVEH, Urine Benzodiazepines Screen NEGATIVE, Urine Cocaine Screen NEGATIVE, Urine Cannabinoids Screen POSITIVEH 11/10/19 11:25: Lactic Acid Level 2.62*H 11/10/19 14:00: Lactic Acid Level 1.79 11/11/19 04:35: White Blood Count 23.1H, Red Blood Count 4.81, Hemoglobin 15.4, Hematocrit 42, Mean Corpuscular Volume 88, Mean Corpuscular Hemoglobin 32, Mean Corpuscular Hemoglobin Concent 36, Red Cell Distribution Width 14.9H, Platelet Count 167, Mean Platelet Volume 11.6H, Neutrophils (%) (Auto) 78H, Lymphocytes (%) (Auto) 10L, Monocytes (%) (Auto) 12, Eosinophils (%) (Auto) 0, Basophils (%) (Auto) 0, Neutrophils # (Auto) 18.0H, Lymphocytes # (Auto) 2.3, Monocytes # (Auto) 2.7H, Eosinophils # (Auto) 0.1, Basophils # (Auto) 0.1, Sodium Level 134L, Potassium Level 3.7, Chloride Level 102, Carbon Dioxide Level 19L, Anion Gap 13, Blood Urea Nitrogen 8, Creatinine 0.66, Estimat Glomerular Filtration Rate > 60, BUN/Creatinine Ratio 12, Glucose Level 84, Calcium Level 8.0L, Corrected Calcium 9.0, Total Bilirubin 1.0, Aspartate Amino Transf (AST/SGOT) 42H, Alanine Aminotransferase (ALT/SGPT) 35, Alkaline Phosphatase 134, Total Protein 6.7, Albumin 2.7L Assessment/Plan Assessment/Plan Assessment/Plan LLQ abdominal pain Sigmoid colitis L epididymitis Hep C Cirrhosis Esophageal varices s/p banding Meth/marijuana use No pain reported today, monitor for recurrence of pain. Consider continuation of clear liquid diet, IV fluids, antibiotics, pain medications. Clinical Quality Measures DVT/VTE Risk/Contraindication: Risk Factor Score Per Nursin RFS Level Per Nursing on Admit: 3=High CHESTER MOLINA DO 11/11/196: Subjective Subjective/Events-last exam Patient is reporting no pain. Feeling better. No abdominal pain or testicular pain. Tolerating liquids. Wanting to go home. Denies n/v fever sweats chills shortness of breath or chest pain. Objective Exam General Appearance: No Apparent Distress HEENT: PERRL/EOMI Neck: Normal Inspection, Non Tender, Supple Respiratory: Chest Non Tender, Lungs Clear, No Accessory Muscle Use Cardiovascular: Regular Rate, Rhythm Gastrointestinal: non tender, soft, no organomegaly Neurologic/Psychiatric: Alert, Oriented x3, Normal Mood/Affect Skin: Normal Color, Warm/Dry Lymphatic: No Adenopathy Assessment/Plan Assessment/Plan Assessment/Plan LLQ abdominal pain Sigmoid colitis L epididymitis Hep C Cirrhosis Esophageal varices s/p banding Meth/marijuana use patient not having any symptoms at this time and feeling well. wanting to go home, he is tolerating liquids. feel should stay on clear liquids a couple days and then advance convert to oral abx his wbc did go up but all symptoms have resolved. okay with him going home as long as he follows up with physicians. no surgical intervention Supervisory-Addendum Brief Verification & Attestation Participated in pt care: history, MDM, physical Personally performed: exam, history, MDM, supervision of care Care discussed with: Medical Student Procedures: n/a Results interpretation: Verified all documentation Verification and Attestation of Medical Student E/M Service A medical student performed and documented this service in my presence. I reviewed and verified all information documented by the medical student and made modifications to such information, when appropriate. I personally performed the physical exam and medical decision making. Chester Molina, Nov 11, 2019,21:46 ELSA SIM MED STUDENT Nov 11, 2019 08:48 CHESTER BARNETT DO Nov 11, 2019 21:46 POS
--- NOTE | 2019-11-11 10:16 | Discharge Inst-Simple/Standard ---
Discharge Inst-Standard Reconcile Patient Problems Problems Reviewed?: Yes Discharge Medications New, Converted or Re-Newed RX: Transmitted to Pharmacy Patient Instructions/Follow Up Plan of Care/Instructions/FU: Please continue to take your medications as written. Please follow up with your PCP in the next week. Activity as Tolerated: Yes Discharge Diet: Liquid Diet Return to The Hospital For: Fevers, chills, abdominal pain, nausea and vomiting, if you feel you are getting worse. LUZ ELENA MAX MD Nov 11, 2019 10:16 POS
[2019-11-11] MEDS ORDERED: AMOX-358 PO (10:17)
[2019-11-11 10:51] VITALS: BP 126/74
[2019-11-11 12:00] VITALS: BP 128/78
--- NOTE | 2019-11-11 12:21 | Discharge Summary ---
[facility] 11/11/19 1221: Diagnosis/Chief Complaint Date of Admission Nov 10, 2019 at 13:58 Date of Discharge Discharge Date: Nov 11, 2019 Admission Diagnosis Severe Sepsis Colitis Intractable abd pain Continue on abx Surgery consulted Dilaudid for pain Epididymitis Continue Zosyn GC/Chlam testing alcoholic liver disease esophageal varices s/p banding hepatitis C no acute management need tobacco abuse meth use reportedly uses clean needles Primary Care No,Local Physician Discharge Diagnosis (1) Colitis Status: Acute (2) Intractable lower abdominal pain Status: Acute (3) Epididymitis Status: Acute Discharge Summary Discharge Physical Exam Allergies: Coded Allergies: morphine (Verified Allergy, Unknown, 11/10/19) Vitals & I&Os Vital Signs Date Time Temp Pulse Resp B/P (MAP) Pulse Ox O2 Delivery O2 Flow Rate FiO2 11/11/19 10:58 93 Room Air 11/11/19 10:51 36.4 98 21 11/11/19 08:00 16 126/74 (91) General Appearance: No Apparent Distress, WD/WN HEENT: PERRL/EOMI, Moist Mucous Membranes Respiratory: Chest Non Tender, Normal Breath Sounds, No Accessory Muscle Use, No Respiratory Distress Cardiovascular: Regular Rate, Rhythm, No Edema, Normal Peripheral Pulses Gastrointestinal: Normal Bowel Sounds, Non Tender; No Distended, No Guarding Extremity: Normal Capillary Refill, No Calf Tenderness, No Pedal Edema Neurologic/Psychiatric: Alert, Oriented x3, Normal Mood/Affect, asset coordinator II-XII Norm as Tested Hospital Course Ashu is a 53 y/o male that was admitted to [facility] on 11/10 and is being discharged today 11/11. He was admitted for colitis, intractable abdominal pain and epididymis. Pertinent PMH HX includes Hepatitis C, esophageal varices and drug abuse. He was under the care of Dr. Lacey hospitalist. Dr. Blevins general surgery was consulted The patient had a CT of the abdomen and pelvis that showed colitis and a U/S that showed epididymis. Pertinent labs include WBC of 21.2, lactic acid of 2.62 and sodium of 132. The patient also had urinary analysis and testing for both Chlamydia and gonorrhoeae. Exam found diffuse abdominal pain and radiation to the left testicle. The patient was placed on abx and was made NPO. The patients abdominal pain has since stopped and examination of the scrotum and testicles do not have pain upon palpation. His diet has been advanced and is he tolerating it. WBC is still elevated but patient has improved and is feeling a lot better. Lactic acid has normalized and sodium has improved to 134. Labs for Chlamydia and gonorrhoeae are pending. Overall the patient has improved and no longer has pain and feels well to go home. He is being discharged today in stable condition. The patient should follow all instructions outlined in his discharge paperwork. The following information is only a summary of the patients admission while at [facility] and is not all inclusive. Please review entire chart for more information. Labs (last 24 hrs) Laboratory Tests 11/10/19 14:00: Lactic Acid Level 1.79 11/11/19 04:35: White Blood Count 23.1H, Red Blood Count 4.81, Hemoglobin 15.4, Hematocrit 42, Mean Corpuscular Volume 88, Mean Corpuscular Hemoglobin 32, Mean Corpuscular Hemoglobin Concent 36, Red Cell Distribution Width 14.9H, Platelet Count 167, Mean Platelet Volume 11.6H, Neutrophils (%) (Auto) 78H, Lymphocytes (%) (Auto) 10L, Monocytes (%) (Auto) 12, Eosinophils (%) (Auto) 0, Basophils (%) (Auto) 0, Neutrophils # (Auto) 18.0H, Lymphocytes # (Auto) 2.3, Monocytes # (Auto) 2.7H, Eosinophils # (Auto) 0.1, Basophils # (Auto) 0.1, Sodium Level 134L, Potassium Level 3.7, Chloride Level 102, Carbon Dioxide Level 19L, Anion Gap 13, Blood Urea Nitrogen 8, Creatinine 0.66, Estimat Glomerular Filtration Rate > 60, BUN/Creatinine Ratio 12, Glucose Level 84, Calcium Level 8.0L, Corrected Calcium 9.0, Total Bilirubin 1.0, Aspartate Amino Transf (AST/SGOT) 42H, Alanine Aminotransferase (ALT/SGPT) 35, Alkaline Phosphatase 134, Total Protein 6.7, Albumin 2.7L Patient resulted labs reviewed. Pending Labs Imaging: Reviewed Imaging Report Discharge Home Medications: Active Scripts Active Augmentin 875-125 Tablet (Amoxicillin/Potassium Clav) 1 Each Tablet 1 Each PO BID Instructions to patient/family Please see electronic discharge instructions given to patient. Clinical Quality Measures DVT/VTE Risk/Contraindication: Risk Factor Score Per Nursin RFS Level Per Nursing on Admit: 3=High LUZ ELENA LACEY MD 11/11/19 1605: Discharge Summary Discharge Physical Exam Allergies: Coded Allergies: morphine (Verified Allergy, Unknown, 11/10/19) Discussion & Recommendations Discharge Planning: >30 minutes discharge planning Supervisory-Addendum Brief Verification & Attestation Participated in pt care: history, MDM, physical Personally performed: exam, history, MDM, supervision of care Care discussed with: Medical Student Procedures: n/a Results interpretation: Verified all documentation Verification and Attestation of Medical Student E/M Service A medical student performed and documented this service in my presence. I reviewed and verified all information documented by the medical student and made modifications to such information, when appropriate. I personally performed the physical exam and medical decision making. Luz Elena Lacey, Nov 11, 2019,16:04 [facility] Nov 11, 2019 12:21 LUZ ELENA BAKER MD Nov 11, 2019 16:05 POS
[2019-11-11 16:00] VITALS: BP 130/82
[2019-11-11] MEDS ORDERED: RT-ALBUTEROL SULF 2.5 MG/3 ML PRE-MIX VIAL INH PRN (16:00)
--- NOTE | 2019-11-11 16:36 | NUR ---
CM FINALIZED DISCHARGE PLAN: Patient is dismissing to home today. He reports that he has no support system to come and pick him up. He also reports that his sister took his pants home from the ER and he needs pants to wear home. Located pants for him to wear et taxi voucher was filled out for patient to get to [address] [place] [address] here in [place], behind [employer]. Left this with the munitions handler supervisor et updated the primary care nurse so she can finalize his discharge. No further interventions noted.
== END 2019-11-11 18:45 | disposition home or self-care (01) | DRG 872 ==
LOC: EDUNIT# 09:08 → ER 09:09 → 4TH 13:58
PROVIDERS: ADMIT Family Medicine; ATTEND Family Medicine
DX: A41.9 Sepsis, unspecified organism (principal); R65.20 Severe sepsis without septic shock; K52.9 Noninfective gastroenteritis and colitis, unspecified; N45.1 Epididymitis; B19.20 Unspecified viral hepatitis C without hepatic coma; I85.10 Secondary esophageal varices without bleeding; F17.210 Nicotine dependence, cigarettes, uncomplicated; K70.31 Alcoholic cirrhosis of liver with ascites; F15.90 Other stimulant use, unspecified, uncomplicated; F12.90 Cannabis use, unspecified, uncomplicated; Z90.81 Acquired absence of spleen
CPT/HCPCS: 36415; 51701; 74176; 74177; 76870; 80053; 80306; 81000; 83605; 85007; 85025; 85027; 86141; 87040; 87491; 87591; 94760

== ENCOUNTER 2021-06-27 23:51 | Emergency (ER) | payer SELFPAY ==
[~2021-06-27] VITALS: Ht 172.7 cm; Wt 65.0 kg
[~2021-06-27 23:51] MED LIST changes: +AMOX-358 PO
[2021-06-28] MEDS ORDERED: fentaNYL INJ 100 MCG/2 ML AMP IVP ONE (00:30)
[2021-06-28] MEDS ORDERED: LORazepam INJ 2 MG/ML (ATIVAN) VIAL IVP ONE (00:30)
[2021-06-28] MEDS ORDERED: LACTATED RINGERS 1,000 ML IV ONE (00:30)
[2021-06-28 00:50] LABS: BASOPHILS % (AUTO) 0 % (0-10); EOSINOPHILS # (AUTO) 0.2 10^3/uL (0.0-0.3); EOSINOPHILS % (AUTO) 1 % (0-10); HEMATOCRIT 42 % (40-54); HEMOGLOBIN 14.3 g/dL (13.3-17.7); LYMPHOCYTES # (AUTO) 1.8 10^3/uL (1.0-4.0); LYMPHOCYTES % (AUTO) 11 % (12-44); MEAN CORPUSCULAR HEMOGLOBIN 32 pg (25-34); MEAN CORPUSCULAR HGB CONC 34 g/dL (32-36); MEAN CORPUSCULAR VOLUME 92 fL (80-99); MONOCYTES # (AUTO) 1.9 10^3/uL (0.0-1.0); MONOCYTES % (AUTO) 12 % (0-12); NEUTROPHILS # (AUTO) 11.5 10^3/uL (1.8-7.8); NEUTROPHILS % (AUTO) 74 % (42-75); PLATELET COUNT 273 10^3/uL (130-400); WHITE BLOOD COUNT 15.6 10^3/uL (4.3-11.0)
[2021-06-28 00:59] LABS: ALBUMIN 2.7 GM/DL (3.2-4.5); POTASSIUM 4.1 MMOL/L (3.6-5.0)
[2021-06-28 01:01] LABS: CALCIUM 8.2 MG/DL (8.5-10.1)
[2021-06-28 01:06] LABS: CREATININE SERUM 0.79 MG/DL (0.60-1.30)
[2021-06-28 01:18] LABS: ANISOCYTOSIS SLIGHT; BAND NEUTROPHILS 1 %; EOSINOPHILS % (MANUAL) 1 %; LYMPHOCYTES % (MANUAL) 7 %; MONOCYTES % (MANUAL) 14 %; NEUTROPHILS % (MANUAL) 77 %; POIKILOCYTOSIS SLIGHT
[2021-06-28 01:19] LABS: TARGET CELLS SLIGHT
[2021-06-28] MEDS ORDERED: HOLD METFORMIN - RECEIVED CONTRAST 20 ML VIAL IV SCH (02:00)
[2021-06-28] MEDS ORDERED: NS 100 ML (IVPB) BAG IV ONE (02:00)
[2021-06-28] MEDS ORDERED: CATHETER FLUSH 10 ML SYR IV PRN (02:00)
[2021-06-28] MEDS ORDERED: IOHEXOL 350 MG/ML 100 ML (OMNIPAQUE 350) VIAL IV ONE (02:00)
[2021-06-28 04:33] LABS: BILIRUBIN,URINE NEGATIVE (NEGATIVE); CLARITY,URINE CLEAR; COLOR,URINE OTHER; GLUCOSE, URINE (UA) NEGATIVE (NEGATIVE); KETONES,URINE NEGATIVE (NEGATIVE); LEUKOCYTE ESTERASE ,URINE TRACE (NEGATIVE); NITRITE,URINE NEGATIVE (NEGATIVE); PH,URINE 5.5 (5-9); PROTEIN,URINE NEGATIVE (NEGATIVE)
[2021-06-28 04:45] LABS: AMPHETAMINE SCREEN, URINE NEGATIVE (NEGATIVE); BARBITURATE SCREEN URINE NEGATIVE (NEGATIVE); BENZODIAZEPINES SCREEN URINE NEGATIVE (NEGATIVE); CANNABINOID SCREEN, URINE NEGATIVE (NEGATIVE); COCAINE SCREEN URINE NEGATIVE (NEGATIVE); METHADONE STAT NEGATIVE (NEGATIVE); METHAMPHETAMINE SCREEN URINE S NEGATIVE (NEGATIVE); OPIATE SCREEN URINE NEGATIVE (NEGATIVE); OXYCODONE STAT NEGATIVE (NEGATIVE); PROPOXYPHENE STAT NEGATIVE (NEGATIVE); TRICYCLIC ANTIDEPRESSANTS SCRE NEGATIVE (NEGATIVE)
[2021-06-28 04:49] LABS: BACTERIA,URINE FEW /HPF; RBC,URINE 0-2 /HPF; WBC,URINE RARE /HPF
[2021-06-28] MEDS ORDERED: AZITHROMYCIN 250 MG TAB (ZITHROMAX) PO STA (04:51)
[2021-06-28] MEDS ORDERED: AZIT250T12 PO (05:00)
--- NOTE | 2021-06-28 05:02 | ED Abdominal Pain ---
General Chief Complaint: Abdominal/GI Problems Stated Complaint: GROIN PAIN Nursing Triage Note: Pt ambulatory into ER with complaint of Abdominal Pain/Buttocks Pain x3 days. Pt states that he cant urinate or have a BM. Pain at a 10/10. Source of Information: Patient Exam Limitations: No Limitations Allergies and Home Medications Allergies Coded Allergies: morphine (Verified Allergy, Unknown, 11/10/19) Home Medications Amoxicillin/Potassium Clav 1 Each Tablet, 1 EACH PO BID Prescribed by: LUZ ELENA MAX on 11/11/19 1017 Azithromycin 250 Mg Tablet, 250 MG PO DAILY Prescribed by: KERVIN TAYLOR on 06/28/21 0500 Past Uumednc-Zfdvwz-Tpisiw Hx Patient Social History Tobacco Use?: Yes Tobacco type used: Cigarettes Use of E-Cig and/or Vaping dev: No Substance use?: Yes Substance type: Methamphetamine Substance frequency: Couple times a week Alcohol Use?: No Pt feels they are or have been: No Immunizations Up To Date Influenza Vaccine Up-to-Date: No; Not Current Seasonal Allergies Seasonal Allergies: No Past Medical History Surgeries: Yes Respiratory: No (Tobaccoism) Cardiac: No (Prior HTN meds) Reproductive Disorders: No Genitourinary: No Gastrointestinal: Yes (HEPATITIS C PER OLD RECORD) Liver Disease/Jaundice, Esophageal Varices, Hepatitis Musculoskeletal: No Endocrine: No Cancer: No Psychosocial: No Integumentary: Yes (Unkempt with dirt and scratches scattered) Blood Disorders: No Adverse Reaction/Blood Tranf: No Family Medical History No Pertinent Family Hx Physical Exam Vital Signs Vital Signs - First Documented 06/28/21 00:18 Temp 36.2 Pulse 86 Resp 20 B/P (MAP) 157/114 (128) Pulse Ox 96 Capillary Refill : Less Than 3 Seconds Height/Weight/BMI Height: 5'4.00" Weight: 140lbs. 0oz. [id number]; 21.00 BMI Method:Estimated Procedures/Interventions Suture Size: 2-0 Progress/Results/Core Measures Results/Orders Lab Results Laboratory Tests Test 06/27/21 04:05 06/28/21 00:38 06/28/21 04:05 Range/Units Urine Color OTHER H Urine Clarity CLEAR Urine pH 5.5 5-9 Urine Specific [place] <=1.005 1.016-1.022 Urine Protein NEGATIVE NEGATIVE Urine Glucose (UA) NEGATIVE NEGATIVE Urine Ketones NEGATIVE NEGATIVE Urine Nitrite NEGATIVE NEGATIVE Urine Bilirubin NEGATIVE NEGATIVE Urine Urobilinogen 0.2 < = 1.0 MG/DL Urine Leukocyte Esterase TRACE H NEGATIVE Urine RBC (Auto) 2+ H NEGATIVE Urine RBC 0-2 /HPF Urine WBC RARE /HPF Urine Crystals NONE /LPF Urine Bacteria FEW H /HPF Urine Casts NONE /LPF Urine Mucus NEGATIVE /LPF Urine Culture Indicated NO White Blood Count 15.6 H 4.3-11.0 10^3/uL Red Blood Count 4.53 4.30-5.52 10^6/uL Hemoglobin 14.3 13.3-17.7 g/dL Hematocrit 42 40-54 % Mean Corpuscular Volume 92 80-99 fL Mean Corpuscular Hemoglobin 32 25-34 pg Mean Corpuscular Hemoglobin Concent 34 32-36 g/dL Red Cell Distribution Width 16.8 H 10.0-14.5 % Platelet Count 273 130-400 10^3/uL Mean Platelet Volume 11.0 9.0-12.2 fL Immature Granulocyte % (Auto) 1 % Neutrophils (%) (Auto) 74 42-75 % Lymphocytes (%) (Auto) 11 L 12-44 % Monocytes (%) (Auto) 12 0-12 % Eosinophils (%) (Auto) 1 0-10 % Basophils (%) (Auto) 0 0-10 % Neutrophils # (Auto) 11.5 H 1.8-7.8 10^3/uL Lymphocytes # (Auto) 1.8 1.0-4.0 10^3/uL Monocytes # (Auto) 1.9 H 0.0-1.0 10^3/uL Eosinophils # (Auto) 0.2 0.0-0.3 10^3/uL Basophils # (Auto) 0.0 0.0-0.1 10^3/uL Immature Granulocyte # (Auto) 0.1 0.0-0.1 10^3/uL Neutrophils % (Manual) 77 % Lymphocytes % (Manual) 7 % Monocytes % (Manual) 14 % Eosinophils % (Manual) 1 % Band Neutrophils 1 % Poikilocytosis SLIGHT Anisocytosis SLIGHT Target Cells SLIGHT Sodium Level 143 135-145 MMOL/L Potassium Level 4.1 3.6-5.0 MMOL/L Chloride Level 111 H 98-107 MMOL/L Carbon Dioxide Level 21 21-32 MMOL/L Anion Gap 11 5-14 MMOL/L Blood Urea Nitrogen 20 H 7-18 MG/DL Creatinine 0.79 0.60-1.30 MG/DL Estimat Glomerular Filtration Rate 103 BUN/Creatinine Ratio 25 Glucose Level 114 H 70-105 MG/DL Calcium Level 8.2 L 8.5-10.1 MG/DL Corrected Calcium 9.2 8.5-10.1 MG/DL Total Bilirubin 1.0 0.1-1.0 MG/DL Aspartate Amino Transf (AST/SGOT) 138 H 5-34 U/L Alanine Aminotransferase (ALT/SGPT) 137 H 0-55 U/L Alkaline Phosphatase 199 H 40-136 U/L C-Reactive Protein High Sensitivity 3.06 H 0.00-0.50 MG/DL Total Protein 7.0 6.4-8.2 GM/DL Albumin 2.7 L 3.2-4.5 GM/DL Lipase 74 8-78 U/L Serum Alcohol < 10 <10 MG/DL Urine Opiates Screen NEGATIVE NEGATIVE Urine Oxycodone Screen NEGATIVE NEGATIVE Urine Methadone Screen NEGATIVE NEGATIVE Urine Propoxyphene Screen NEGATIVE NEGATIVE Urine Barbiturates Screen NEGATIVE NEGATIVE Ur Tricyclic Antidepressants Screen NEGATIVE NEGATIVE Urine Phencyclidine Screen NEGATIVE NEGATIVE Urine Amphetamines Screen NEGATIVE NEGATIVE Urine Methamphetamines Screen NEGATIVE NEGATIVE Urine Benzodiazepines Screen NEGATIVE NEGATIVE Urine Cocaine Screen NEGATIVE NEGATIVE Urine Cannabinoids Screen NEGATIVE NEGATIVE My Orders Orders - KERVIN COX MD Ua Culture If Indicated (06/27/21 23:56) Bladder Scan (06/27/21 23:56) Fentanyl Inj (Sublimaze Injection) (06/28/21 00:30) Lorazepam Injection (Ativan Injection) (06/28/21 00:30) Cbc With Automated Diff (06/28/21 00:28) Comprehensive Metabolic Panel (06/28/21 00:28) Hs C Reactive Protein (06/28/21 00:28) Lipase (06/28/21 00:28) Lactated Ringers (Lr 1000 Ml Iv Solution (06/28/21 00:30) Manual Differential (06/28/21 00:38) Drug Screen Stat (Urine) (06/28/21 00:57) Ct Abdomen/Pelvis W (06/28/21 01:07) Iohexol Injection (Omnipaque 350 Mg/Ml 1 (06/28/21 02:00) Received Contrast (Hold Metformin- Contr (06/28/21 02:00) Sodium Chloride Flush (Catheter Flush Sy (06/28/21 02:00) Ns (Ivpb) (Sodium Chloride 0.9% Ivpb Bag (06/28/21 02:00) Alcohol (06/28/21 03:02) Azithromycin Tablet (Zithromax Tablet) (06/28/21 04:51) Medications Given in ED Current Medications Medications Dose Ordered Sig/Brooke Route Start Time Stop Time Status Last Admin Dose Admin Fentanyl Citrate 75 mcg ONCE ONCE IVP 06/28/21 00:30 06/28/21 00:31 DC 06/28/21 00:51 75 MCG Iohexol 100 ml ONCE ONCE IV 06/28/21 02:00 06/28/21 02:01 DC 06/28/21 01:51 82 ML Lactated Ringer's 1,000 ml @ 0 mls/hr Q0M ONCE IV 06/28/21 00:30 06/28/21 00:31 DC 06/28/21 00:51 1,000 MLS/HR Lorazepam 0.5 mg ONCE ONCE IVP 06/28/21 00:30 06/28/21 00:31 DC 06/28/21 00:51 0.5 MG Sodium Chloride 10 ml NEEDED PRN IV 06/28/21 02:00 06/28/21 01:52 10 ML Sodium Chloride 100 ml ONCE ONCE IV 06/28/21 02:00 06/28/21 02:01 DC 06/28/21 01:52 80 ML Vital Signs/I&O 06/28/21 00:18 Temp 36.2 Pulse 86 Resp 20 B/P (MAP) 157/114 (128) Pulse Ox 96 Blood Pressure Mean: 128 Progress Progress Note : Time: 05:07 Progress Note Patient walked out without receiving his antibiotics and left without his discharge papers. Effectively he left AGAINST MEDICAL ADVICE. Diagnostic Imaging Diagonstic Imaging: CT Plain Films/CT/US/NM/MRI: abdomen, pelvis Comments CT abdomen pelvis stat rad report reviewed. There are inflammatory appearing micronodular infiltrate findings in the lung bases call blood work JULIO for the right little lobe and left lower lobe, possibly representing atypical infection. There is also cirrhosis and mild hazy edema or less likely inflammation of the abdominal mesentery. There was mild mural thickening of the jejunum. There is mural thickening of the sigmoid and rectum as well. Colitis was not excluded. Departure Impression Primary Impression: Abdominal pain Qualified Codes: R10.84 - Generalized abdominal pain Additional Impressions: Colitis Pulmonary infiltrate Disposition: HOME, SELF-CARE Condition: Improved Departure-Patient Inst. Decision time for Depature: 04:59 Referrals: NO,LOCAL PHYSICIAN (PCP/Family) Primary Care Physician Patient Instructions: Colitis (DC) Add. Discharge Instructions: Complete your antibiotic as prescribed. Start with a clear liquid diet and gradually advance your diet with small quantities of bland food as tolerated. Take Tylenol up to 1000 mg every 6 hours as needed for pain. Call with questions or concerns. Return to the ER if you have worsening symptoms. All discharge instructions reviewed with patient and/or family. Voiced un derstanding. Scripts Azithromycin (Azithromycin) 250 Mg Tablet 250 MG PO DAILY, #4 TAB 0 Refills Prov: KERVIN COX MD 06/28/21 KERVIN COX MD Jun 28, 2021 05:02
[2021-06-28 05:19] VITALS: BP 130/105
--- NOTE | 2021-06-28 07:24 | Diagnostic Imaging Report ---
PROCEDURE: CT abdomen and pelvis with contrast. TECHNIQUE: Multiple contiguous axial images were obtained through the abdomen and pelvis after administration of intravenous contrast. Auto Exposure Controls were utilized during the CT exam to meet ALARA standards for radiation dose reduction. All CT scans use one or more of the following dose optimizing techniques: automated exposure control, MA and/or KvP adjustment based on patient size and exam type or iterative reconstruction. INDICATION: Abdominal pain. Comparison made with prior examination of 11/10/2019. FINDINGS: There are patchy bibasilar pulmonary infiltrates. The heart size is normal. There is a somewhat sclerotic appearance of liver. Gallbladder is unremarkable. There is no biliary duct dilatation. Spleen appears be surgically absent. Pancreas, adrenal glands and kidneys are grossly unremarkable. Aorta is nonaneurysmal. Bowel gas pattern is nonspecific. There is some edematous appearance of the abdominal mesentery. Some questionable mural thickening in the jejunum. There is also mural thickening in the sigmoid and rectum. No pelvic mass, adenopathy or free fluid. There is chronic bilateral spondylolysis at L5 without significant spondylolisthesis. Otherwise mild degenerative changes in the spine. IMPRESSION: Patchy bibasilar infiltrate suspect for atypical pneumonia. Cirrhotic appearance of liver. Nonspecific edematous appearance of the abdominal mesentery. There is also some mural thickening in the jejunum, right sigmoid colon and rectum possibly reflecting colitis. Recommend clinical correlation. Bilateral spondylolysis at L5. Dictated by: Dictated on workstation # [id number]
== END 2021-06-28 04:58 | disposition home or self-care (01) ==
LOC: EDUNIT# 23:51 → ER 23:54
DX: K52.9 Noninfective gastroenteritis and colitis, unspecified (principal); R91.8 Other nonspecific abnormal finding of lung field
CPT/HCPCS: 74177; 80053; 80306; 81000; 83690; 85007; 85027; 86141; 99283; G0480; 36415; 80320

== ENCOUNTER 2022-11-15 05:39 | Outpatient (CLI) | payer SELFPAY ==
[~2022-11-15] VITALS: Ht 172.7 cm; Wt 73.0 kg
[~2022-11-15 05:39] MED LIST changes: +AZIT250T12 PO
[2022-11-17] MEDS ORDERED: ACHD5005 PO (11:48)
== END 2022-11-15 12:47 | disposition home or self-care (01) ==
LOC: PREOP 05:39
PROVIDERS: ATTEND Surgery
DX: Z01.818 Encounter for other preprocedural examination (principal)

== ENCOUNTER 2022-11-17 09:00 | Day surgery (SDC) | payer OTHER ==
[~2022-11-17] VITALS: Ht 172.7 cm; Wt 73.0 kg
[2022-11-17] VITALS (11 sets, daily range): BP systolic 92–132; BP diastolic 55–90
[2022-11-17] MEDS ORDERED: ceFAZolin INJECTION 2,000 MG in NS (IVPB) 50 ML IV ONE (09:15)
--- NOTE | 2022-11-17 09:45 | Progress Note-Pre Operative ---
Pre-Operative Progress Note Date H&P Reviewed: Nov 17, 2022 Time H&P Reviewed: 09:24 History & Physical: H&P Reviewed, Patient Examed, No changes noted Pre-Operative Diagnosis: Incarcerated right inguinal hernia DONTAE FITCH DO Nov 17, 2022 09:45
[2022-11-17] MEDS: LACTATED RINGERS 1,000 ML IV PRN ×2 (10:00→11:38)
[2022-11-17] MEDS ORDERED: NS (IVPB) 50 ML ONE (10:03)
[2022-11-17] MEDS ORDERED: ceFAZolin INJECTION 2,000 MG ONE (10:03)
[2022-11-17] MEDS ORDERED: fentaNYL INJ 100 MCG/2 ML AMP ONE ×2 (10:07→12:07)
[2022-11-17] MEDS ORDERED: LIDOCAINE PF 2% 5 ML (XYLOCAINE) VIAL ONE (10:07)
[2022-11-17] MEDS ORDERED: ONDANSETRON 4 MG/2 ML (SDV) Z0FRAN ONE (10:07)
[2022-11-17] MEDS ORDERED: ROCURONIUM 10 MG/ML 5 ML SYRINGE IV ONE (10:07)
[2022-11-17] MEDS ORDERED: MIDAZOLAM 2 MG/2 ML (VERSED) VIAL ONE (10:07)
[2022-11-17] MEDS ORDERED: proPOfol 200 MG/20 ML (DIPRIVAN) VIAL IV ONE (10:07)
[2022-11-17] MEDS ORDERED: LIDOCAINE/EPI 1%-1:100,000 (XYLOCAINE) 30ML ONE (10:15)
[2022-11-17 10:31] LABS: AMPHETAMINE SCREEN, URINE NEGATIVE (NEGATIVE); BARBITURATE SCREEN URINE NEGATIVE (NEGATIVE); BENZODIAZEPINES SCREEN URINE NEGATIVE (NEGATIVE); CANNABINOID SCREEN, URINE NEGATIVE (NEGATIVE); COCAINE SCREEN URINE NEGATIVE (NEGATIVE); METHADONE STAT NEGATIVE (NEGATIVE); OPIATE SCREEN URINE NEGATIVE (NEGATIVE); OXYCODONE STAT NEGATIVE (NEGATIVE); PROPOXYPHENE STAT NEGATIVE (NEGATIVE); TRICYCLIC ANTIDEPRESSANTS SCRE NEGATIVE (NEGATIVE)
[2022-11-17] MEDS ORDERED: ceFAZolin INJECTION 2,000 MG IV ONE (10:37)
[2022-11-17] MEDS ORDERED: LIDOCAINE/EPI 1%-1:100,000 (XYLOCAINE) 30ML INJ ONE (11:10)
[2022-11-17] MEDS ORDERED: PHENYLEPHRINE 100 MCG/ML 10 ML (ANESTHESIA) SYR ONE (11:11)
[2022-11-17] MEDS ORDERED: GLYCOPYRROLATE 0.2 MG/ML (ROBINUL) 2 ML VIAL ONE (11:37)
[2022-11-17] MEDS ORDERED: NEOSTIGMINE 3 MG/3 ML VIAL ONE (11:37)
--- NOTE | 2022-11-17 11:47 | Progress Note-Post Operative ---
Post-Operative Progess Note Surgeon (s)/Gis Analyst Developer (s) Surgeon DONTAE FITCH DO Gis Analyst Developer: Gen Pre-Operative Diagnosis Incarcerated right inguinal hernia Post-Operative Diagnosis same - indirect cord lipoma Procedure & Operative Findings Date of Procedure 11/17/22 Procedure Performed/Findings PROCEDURE: 1) Open Right inguinal hernia repair with mesh 2) Excision of cord lipoma COMPLICATIONS: None. INDICATIONS: The patient is a 56, male male with an incarcerated right inguinal hernia. On CT it appeared to have incarcerated bowel possibly causing obstruction. He understands risks and benefits of procedure and wished to proceed with procedure. Consent was signed in the chart. DESCRIPTION OF PROCEDURE: The patient was taken to the operating suite, was prepped and draped in sterile fashion. Surgical pause was performed. Local anesthetic was infiltrated at the ASIS (to perform ilio-inguinal nerve block, at pubic tubercle and in the left lower quadrant where incision would be made. Incision was made with a #15 blade and cautery used to dissect down to the external oblique, which was then opened down through the external ring. First encountered a very thickened cremaster layer, went through it to get to the cord and cord structures. The spermatic cord was then dissected around and a Aurora drain was placed around it; there was no direct defect present. An indirect hernia present which was then dissected off of the spermatic cord. The hernia sac was then twisted and suture ligated. Found a cord lipoma that was interfering with closure and elected to remove this with bovie cautery. Then placed a 14 x8 cm ProGrip mesh, this was secured at Rupert's ligament and then incorporated around the spermatic cord and placed under the external oblique fascia. Hemostasis was achieved. The external oblique was then closed recreating the external ring and the mesh recreated the internal inguinal ring. Then the subcutaneous tissues (celestine fascia) were then reapproximated using 3-0 Vicryl and skin was then closed using 4-0 Monocryl in a subcuticular fashion. The abdomen was then washed and dried and Skin Affix was placed over the incision. The patient tolerated procedure well without any complications and taken to recovery room in stable condition. Dr. Blevins assisted helping to make incisions, close incisions, identify anatomy and hold anatomy out of the way. Anesthesia Type GET Estimated Blood Loss Estimated blood loss (mL): scant Specimens/Packing Specimens Removed hernia sac cord lipoma DONTAE FITCH DO Nov 17, 2022 11:47
[2022-11-17] MEDS ORDERED: ACHD5005 PO (11:48)
--- NOTE | 2022-11-17 11:49 | Discharge Inst-Surgical ---
Discharge Inst-Surgical Depart Medication/Instructions New, Converted or Re-Newed RX: Transmitted to Pharmacy Patient Instructions Follow up Appt: Make appointment for 1 week. [phone] Instructions: No lifting greater than 20 pounds. No strenuous activity. May shower in 24 hours, no tub bath or soaking. Use incentive spirometer at home as directed. No Smoking Skin/Wound Care: May remove bandages in am. You need to leave the Dermabond on incision it will fall off on it's own. Symptoms to Report: Appetite Changes, Extremity Discoloration, Numbness/Tingling, Swelling Increased, Bleeding Excessive, Eyesight Changes, Pain Increased, Urine Color Change, Constipation(Persistent), Fever over 101 degree F, Pain/Pressure in chest, Urinating Difficulty, Cough Up/Vomit Blood, Heart Beat Irreg/Pounding, Pain/Pressure in jaw, Cramps in feet or legs, Lightheadedness, Pain/Pressure in shoulder, Diarrhea(Persistent), Memory Changes Suddenly, Questions/Concerns, Weight gain consecutive days, Dizziness/Fainting, Nausea/Vomiting, Shortness of Breath, Weight gain over 2 pounds If questions or concerns contact your physician Or seek help at emergency department. Activity Activity Instructions: Avoid Stress to Incision Driving Instructions: No Driving/Refer to Diet Discharge Diet: No Restrictions Diet After 24 Hours: Clear Liquid if Nauseous If Any Problems/Questions/Issu: Contact Your Physician, Go to Emergency Room Skin/Wound Care Infection Signs and Symptoms: Increased Redness, Foul Odor of Wound, Increased Drainage, Skin Itchy or Has a Rash, Increased Swelling, Temperature Above 101 F Bathing Instructions: Shower Stitches/Dennis/Dermabond Dis: Dermabond Ice Pack: Ice On and Off Site DONTAE FITCH DO Nov 17, 2022 11:49
[2022-11-17] MEDS ORDERED: SEVOFLURANE (ULTANE) 15 ML INHAL SOLN ONE (11:57)
[2022-11-17] MEDS ORDERED: HYDROmorphone 2 MG/ML VIAL (DILAUDID) IV ONE (12:15)
[2022-11-17] MEDS ORDERED: ONDANSETRON 4 MG/2 ML (SDV) Z0FRAN IVP PRN (12:15)
[2022-11-17] MEDS ORDERED: fentaNYL INJ 100 MCG/2 ML AMP IVP ONE (12:15)
[2022-11-17] MEDS ORDERED: PROMETHAZINE INJ 25 MG/ML (PHENERGAN) AMP IVP ONE (12:15)
[2022-11-17] MEDS ORDERED: MEPERIDINE (DEMEROL) INJ 50 MG/ML ONE (12:27)
--- NOTE | 2022-11-17 12:52 | Anesthesia-General Post-Op ---
General Patient Condition Mental Status/LOC: Same as Preop Cardiovascular: Satisfactory Nausea/Vomiting: Absent Respiratory: Satisfactory Pain: Controlled Complications: Absent Post Op Complications Complications None Follow Up Care/Instructions Patient Instructions None needed. Anesthesia/Patient Condition Patient Condition Patient is doing well with no complaints, stable vital signs, no apparent adverse anesthesia problems. He has just [place] [facility] [place] No complications reported per nursing. FRANCISCO MILLER DO Nov 17, 2022 12:52
== END 2022-11-17 14:20 | disposition home or self-care (01) ==
LOC: SDC 09:00
PROVIDERS: ATTEND Surgery
DX: K40.30 Unilateral inguinal hernia, with obstruction, without gangrene, not specified as recurrent (principal); D17.6 Benign lipomatous neoplasm of spermatic cord; F17.210 Nicotine dependence, cigarettes, uncomplicated
CPT/HCPCS: 49507; 80306; 87081; C1781